=== PATIENT | female | born 1975 | race Caucasian/White ===

== ENCOUNTER 2018-10-29 03:05 | Inpatient (IN) | payer SELFPAY ==
[2018-10-29] MEDS ORDERED: 0.9 % SODIUM CHLORIDE 1,000 ML IV ONE ×2 (03:28→04:01)
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
[2018-10-29] MEDS ORDERED: KETOROLAC TROMETHAMINE 30 MG/1ML VIAL IVP ONE (03:32)
[2018-10-29] MEDS ORDERED: ONDANSETRON HCL/PF 4 MG/ 2ML VIAL IVP ONE (03:33)
[2018-10-29] MEDS ORDERED: HYDROmorphone HCL/PF 1 MG/ML VIAL IVP ONE (04:05)
--- NOTE | 2018-10-29 06:26 | Diagnostic Imaging Report ---
SALMA WAITE [facility] [id number] [facility] [address] [place] [address]. [id number] Report Submission Date: Oct 28, 2018 10:26:51 PM REPEATER OPERATOR Patient Study Name: SONIDO WATSON Date: Oct 28, 2018 9:51:27 PM REPEATER OPERATOR Modality Type: DX Gender: F Description: LOWER EXTREMITY : [birth year] Institution: [facility] Physician: SALMA WAITE 3 views of the right knee History: RT KNEE PAIN, FALL ON 10/16/18 No comparison studies Cortical irregularity of the patella with an osseous fragment seen adjacent to it along its medial aspect. In addition there is cortical irregularity along the distal right femur. No suprapatellar effusion Impression: 1. Osseous density is noted adjacent to the right distal femur on its medial aspect, on only 1 view, distal femur fracture is not excluded. Oblique view of the right knee and dedicated views of the right femur recommended. 2. Fracture fragment is seen adjacent to the medial aspect of the patella, suggestive of avulsion fracture, chronicity is not known. Please correlate with site of pain. Electronically signed on Oct 28, 2018 10:26:51 PM REPEATER OPERATOR by: Aurora Wei Right knee oblique view is now provided, right distal femur is intact. Patellar cortical irregularity again seen. Addendum electronically signed by Aurora Wei on October 28, 2018 11:41:49 PM REPEATER OPERATOR [facility]
[2018-10-29] MEDS: DEXTROSE 5 %-0.45 % SOD CHLORD 1,000 ML IV SCH ×2 (07:57→18:30)
[2018-10-29] MEDS: HYDROmorphone HCL/PF 1 MG/ML VIAL IVP PRN ×5 (07:58→23:12)
[2018-10-29 08:39] VITALS: BMI 30.9
[2018-10-29 09:19] LABS: eGFR (Non-African) > 60
[2018-10-29 09:20] LABS: BASOPHILS % 0.4 (0.0-1.5); EOSINOPHILS % 1.2 % (0.0-6.8); MEAN CORPUSCULAR HEMOGLOBIN 31.5 pg (28.0-34.0); MONOCYTES % 8.7 % (0.0-11.0); NEUTROPHILS # 10.7 # k/uL (1.4-7.7)
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
[2018-10-29] MEDS ORDERED: KETOROLAC TROMETHAMINE 30 MG/1ML VIAL IVP PRN (09:47)
[2018-10-29] MEDS: ENOXAPARIN SODIUM 30 MG/0.3 ML DISP.SYRIN SQ SCH (09:55)
[2018-10-29 10:29] LABS: APPEARANCE,URINE CLEAR (CLEAR); COLOR,URINE YELLOW (YELLOW)
[2018-10-29 10:30] LABS: OCCULT BLOOD,URINE 2+ (NEGATIVE); UROBILINOGEN URINE 0.2 Eu (0.2-1.0)
[2018-10-29] MEDS ORDERED: cefTRIAXone SODIUM 1 GM VIAL ONE (13:00)
[2018-10-29] MEDS ORDERED: 0.9 % SODIUM CHLORIDE 50 ML IV ONE (13:00)
[2018-10-29] MEDS: cefTRIAXone SODIUM 1 GM in 0.9 % SODIUM CHLORIDE 50 ML IV SCH (13:08)
[2018-10-29] MEDS ORDERED: HYDROmorphone HCL/PF 2 MG/ML VIAL ONE ×2 (20:13→23:06)
[2018-10-30] MEDS ORDERED: HYDROmorphone HCL/PF 2 MG/ML VIAL ONE ×4 (02:52→10:40)
[2018-10-30] MEDS: HYDROmorphone HCL/PF 1 MG/ML VIAL IVP PRN ×3 (03:03→10:41)
[2018-10-30] MEDS: DEXTROSE 5 %-0.45 % SOD CHLORD 1,000 ML IV SCH ×2 (04:38→15:17)
[2018-10-30 07:34] LABS: MEAN CORPUSCULAR HEMOGLOBIN 31.8 pg (28.0-34.0)
--- NOTE | 2018-10-30 10:58 | Inpatient Progress Note ---
Subjective - Required Recertification Statement I anticipate X number of days because-include discharge plan: 1 - Review of Systems Events since last encounter: Roberta is markedly improved today. Her lipase has normalized, as well as her WBC now coming down. She remains NPO, however with her improvement, I have written to advance her diet as tolerated. She is afebrile, BP fairly well controlled. She still has c/o a headache. She declines Toradol as she says that it doesn't help. If she can tolerate food, it is my hope to get her home today. General: Chills, Night Sweats HEENT: Head Aches (minimally improved), Visual Changes Pulmonary: Denies: Dyspnea, Cough Cardiovascular: Denies: Chest Pain Gastrointestinal: Abdominal Pain (right flank, right upper quadrant). Denies: Nausea, Vomiting Genitourinary: Denies: Dysuria Musculoskeletal: Denies: Neck Pain, Shoulder Pain Neurological: Weakness Objective - Exam Vitals and I&O: Vital Signs Temp 98.9 F 10/30/18 09:42 Pulse 88 10/30/18 09:42 Resp 16 10/30/18 09:42 BP 143/89 10/30/18 09:42 Pulse Ox 98 10/30/18 09:42 Intake & Output 10/29/18 10/29/18 10/30/18 11:59 23:59 11:59 Intake Total 360 Output Total 700 Balance -700 360 Weight 81.647 kg Intake: Oral 360 Output: Urine 700 Other: Voiding Method Toilet Toilet Toilet # Voids 1 3 # Bowel Movements 0 General: Alert, Oriented to Person, Moderate distress (due to headache) HEENT: Atraumatic, PERRLA, EOMI Neck: Supple Lungs: Clear to auscultation, Normal air movement Cardiovascular: Regular rate Abdomen: Normal bowel sounds, Other (Tender in right flank and right upper quadrant) Extremities: No clubbing, No cyanosis Skin: Normal, [place], Warm Neurological: Normal gait Psych/Mental Status: Mental status NL, Mood NL - Results Results: Laboratory Results WBC 10.60 K/ul (4.00-12.00) 10/30/18 06:00 RBC 3.66 M/ul (3.90-5.20) L 10/30/18 06:00 Hgb 11.6 g/dL (12.0-16.0) L 10/30/18 06:00 Hct 35.0 % (34.5-46.5) 10/30/18 06:00 MCV 96.0 fl (80.0-100.0) 10/30/18 06:00 MCH 31.8 pg (28.0-34.0) 10/30/18 06:00 MCHC 33.2 g/dL (30.0-36.0) 10/30/18 06:00 RDW 10.9 % (11.3-14.3) L 10/30/18 06:00 Plt Count 229 K/mm3 (130-400) 10/30/18 06:00 Neut % (Auto) 78.9 % (39.0-79.0) 10/29/18 03:38 Lymph % (Auto) 10.8 % (16.0-50.0) L 10/29/18 03:38 [place] % (Auto) 8.7 % (0.0-11.0) 10/29/18 03:38 Eos % (Auto) 1.2 % (0.0-6.8) 10/29/18 03:38 Baso % (Auto) 0.4 (0.0-1.5) 10/29/18 03:38 Neut # (Auto) 10.7 # k/uL (1.4-7.7) H 10/29/18 03:38 Lymph # (Auto) 1.5 # k/uL (0.6-4.0) 10/29/18 03:38 [place] # (Auto) 1.2 # k/uL (0.0-0.9) H 10/29/18 03:38 Eos # (Auto) 0.2 # k/uL (0.0-0.6) 10/29/18 03:38 Baso # (Auto) 0.1 # k/uL (0.0-0.5) 10/29/18 03:38 Sodium 134 mmol/L (136-145) L 10/29/18 03:38 Potassium 4.0 mmol/L (3.5-5.1) 10/29/18 03:38 Chloride 102 mmol/L (98-107) 10/29/18 03:38 Carbon Dioxide 23 mmol/L (22-30) 10/29/18 03:38 BUN 14 mg/dL (7-17) 10/29/18 03:38 Creatinine 0.60 mg/dL (0.52-1.04) 10/29/18 03:38 Estimated Creat Clear 185 12 03:38 Est GFR ( Amer) > 60 (60-) 12 03:38 Est GFR (Non-Af Amer) > 60 (60-) 10/29/18 03:38 Glucose 188 mg/dL (74-106) H 10/29/18 03:38 Calcium 8.4 mg/dL (8.4-10.2) 10/29/18 03:38 Total Bilirubin 0.4 mg/dL (0.2-1.3) 10/29/18 03:38 AST 52 U/L (15-46) H 10/29/18 03:38 ALT 79 U/L (13-69) H 10/29/18 03:38 Alkaline Phosphatase 78 U/L (38-126) 10/29/18 03:38 Total Protein 7.1 g/dL (6.3-8.2) 10/29/18 03:38 Albumin 3.6 g/dL (3.5-5.0) 10/29/18 03:38 Lipase 286 U/L (23-300) 10/30/18 Unknown Urine Color Yellow (YELLOW) 10/29/18 07:21 Urine Appearance Clear (CLEAR) 10/29/18 07:21 Urine pH 6.0 (5.0 - 8.0) 10/29/18 07:21 Ur Specific [place] 1.010 (1.010-1.030) 10/29/18 07:21 Urine Protein 1+ mg/dL (NEGATIVE) H 10/29/18 07:21 Urine Ketones Negative mg/dL (NEGATIVE) 10/29/18 07:21 Urine Occult Blood 2+ (NEGATIVE) H 10/29/18 07:21 Urine Nitrite Positive (NEGATIVE) H 10/29/18 07:21 Urine Bilirubin Negative (NEGATIVE) 10/29/18 07:21 Urine Urobilinogen 0.2 Eu (0.2-1.0) 10/29/18 07:21 Ur Leukocyte Esterase 1+ (NEGATIVE) H 10/29/18 07:21 Urine RBC 2-5 (0-2 HPF) H 10/29/18 07:21 Urine WBC >100 (0-5 HPF) H 10/29/18 07:21 Ur Transition Epith Cell Few (NEGATIVE) H 10/29/18 07:21 Urine Bacteria Many (NEGATIVE) H 10/29/18 07:21 Urine Glucose Negative mg/dL (NEGATIVE) 10/29/18 07:21 Assessment/Plan - Assessment/Plan (1) Pyelonephritis Status: Acute Current Visit: Yes Assessment: Improved Plan: Continue rocephin Await urine cultures (2) Migraines Status: Acute Current Visit: Yes Assessment: Slightly improved (3) Pancreatitis Status: Acute Current Visit: Yes Qualifiers: Chronicity: acute Pancreatitis type: unspecified pancreatitis type Acute pancreatitis complication: unspecified Qualified Code(s): K85.90 - Acute pancreatitis without necrosis or infection, unspecified Assessment: Now with normal lipase Plan: Advance diet Hope for discharge to home this afternoon
[2018-10-30] MEDS ORDERED: cefTRIAXone SODIUM 1 GM VIAL ONE (12:03)
[2018-10-30] MEDS ORDERED: 0.9 % SODIUM CHLORIDE 50 ML IV ONE (12:03)
[2018-10-30] MEDS: ENOXAPARIN SODIUM 30 MG/0.3 ML DISP.SYRIN SQ SCH (12:52)
[2018-10-30] MEDS: cefTRIAXone SODIUM 1 GM in 0.9 % SODIUM CHLORIDE 50 ML IV SCH (12:53)
[2018-10-30] MEDS: HYDROmorphone HCL/PF 2 MG/ML VIAL IVP PRN ×3 (12:58→17:11)
[2018-10-30 17:46] VITALS: BP 154/94
--- NOTE | 2018-11-08 12:19 | Discharge Summary ---
DATE OF ADMISSION: October 28, 2018 DATE OF DISCHARGE: October 30, 2018 DIAGNOSES ON THIS HOSPITALIZATION: 1. Pancreatitis. 2. Pyelonephritis. 3. Migraine headaches. SUMMARIZATION OF ADMISSION HISTORY AND PHYSICAL: This is a 43-year-old female who presented to the emergency room with a complaint of an onset of right flank pain, as well as generalized malaise, nausea, and vomiting. She denied any significant dysuria. She did have some headaches. She states she has had migraines life long. HOSPITAL COURSE: She was admitted. CT scan showed a questionable right pyelonephritis. Her urinalysis did show over 100 white blood cells per high-power field. The urine was sent for culture. She was started on IV Rocephin 1 gram IV every 24 hours and Dilaudid for pain. Her amylase had normalized by hospital day number 2. She was discharged to home then with Diclofenac 75 mg p.o. b.i.d p.r.n. headache, as well as Bactrim DS 1 p.o. b.i.d. for antibiotics. I did this because she does have an ananaphylactic reaction to penicillin. She did not have any reaction to Rocephin in the hospital. CONDITION ON DISCHARGE: She was discharged to home in improved condition. DISCHARGE INSTRUCTIONS: She is to call the office on Monday for culture results to see if we need to switch her antibiotics. PATRICIA
== END 2018-10-30 17:44 | disposition home or self-care (01) | DRG 439 ==
LOC: ED 03:05 → SOUTH 07:15
PROVIDERS: ADMIT Family Medicine; ATTEND Family Medicine
DX: K85.90 Acute pancreatitis without necrosis or infection, unspecified (principal); N10 Acute pyelonephritis; G43.909 Migraine, unspecified, not intractable, without status migrainosus
CPT/HCPCS: 74177; 80053; 81002; 83690; 85025; 85027; 87086; 87186; J0696; J1170; J1650; J1885; J2405; J7030; Q9967; 99221; 99238; 99284; S1016; S5010

== ENCOUNTER 2019-02-04 21:53 | Emergency (ER) | payer OTHER ==
[2019-02-04 22:41] VITALS: BP 142/87
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
[2019-02-05 00:05] LABS: COLOR,URINE YELLOW (YELLOW)
[2019-02-05 00:06] LABS: APPEARANCE,URINE CLOUDY (CLEAR)
[2019-02-05 00:07] LABS: OCCULT BLOOD,URINE TRACE-INTACT (NEGATIVE); UROBILINOGEN URINE 0.2 Eu (0.2-1.0)
== END 2019-02-04 22:33 | disposition left against medical advice (07) ==
LOC: ED 21:53
DX: R30.0 Dysuria (principal); R10.32 Left lower quadrant pain; K08.89 Other specified disorders of teeth and supporting structures; Z72.0 Tobacco use
CPT/HCPCS: 81002; 87086; 99282; 99283

== ENCOUNTER 2019-12-09 09:23 | Emergency (ER) | payer OTHER ==
--- NOTE | 2019-12-09 09:37 | ED Physician Documentation ---
Female Urogenital Problems - HISTORIAN Historian: patient - HPI Stated Complaint: buring on urination Chief Complaint: Female Urogenital Problems Additional Information: 44 year old male presents with c/o burning with urination that started 3 days ago. Onset: days ago Severity: mild Location of Pain: low back pain - Associated Symptoms Urinary Symptoms: discomfort w/ urination, burning w/ urination, urgency w/ urination - ROS CONST: none GI/: denies: nausea, vomiting CVS/RESP: none EYES/ENT: none NEURO/PSYCH: none MS/SKIN/LYMPH: none - PAST HX Past History: other (Depression, Hx of pancreatitis) Other History: hypertension Immunizations: UTD Allergies/Adverse Reactions: Allergies Allergy/AdvReac Type Severity Reaction Status Date / Time ketorolac [From Toradol] Allergy Verified 12/09/19 09:35 Penicillins Allergy Verified 12/09/19 09:35 sulfamethoxazole Allergy Verified 12/09/19 09:35 [From Bactrim] tramadol Allergy Verified 12/09/19 09:35 trimethoprim [From Bactrim] Allergy Verified 12/09/19 09:35 Home Medications: Ambulatory Orders Medication Instructions Recorded CiproFLOXacin HCL [Cipro] 500 mg PO BID #14 tablet 12/09/19 Lisinopril 40 mg PO QDAY 12/09/19 Phenazopyridine HCl [Pyridium] 200 mg PO TID #6 tablet 12/09/19 Pregabalin 100 mg PO TID 12/09/19 hydroCHLOROthiazide [Hydrodiuril] 25 mg PO DAILY 12/09/19 - SOCIAL HX Smoking History: greater than 1 pack/day Alcohol Use: heavy Drug Use: marijuana, methamphetamines - FAMILY HX Family History: none - VITAL SIGNS Vital Signs: Vital Signs Temp Pulse Resp BP Pulse Ox 98.7 F 84 24 137/96 99 12/09/19 09:23 12/09/19 09:23 12/09/19 09:23 12/09/19 09:23 12/09/19 09:23 - REVIEWED ASSESSMENTS Nursing Assessment Reviewed: Yes Vitals Reviewed: Yes Female Urogenital Problems - EXAM General Appearance: alert, mild distress EENT: eye inspection normal, ENT inspection normal, pharynx normal, no signs of dehydration, SHIRLEY, TM's nml Neck: nml inspection Respiratory: breath sounds nml CVS: heart sounds normal Abdomen: soft, non-tender Back: non-tender Skin: color nml, no rash, warm,dry Extremities: non-tender, normal range of motion Neuro: oriented X3, CN's nml as tested, motor nml, sensation nml, mood/affect nml, cognition normal Discharge Clincal Impression: Urinary tract infection symptoms Prescriptions: CiproFLOXacin HCL [Cipro] 500 mg PO BID #14 tablet Phenazopyridine HCl [Pyridium] 200 mg PO TID #6 tablet Referrals: Primary Doctor,No [Primary Care Provider] - 2 Days Additional Instructions: Take Cipro 500mg by mouth twice a day for 7 days Take Pyridium 200 mg by mouth 3 times a day as needed for pain Increase water intake > 64 oz. Follow up with PCP next week for re-evaluation Comments: Patient upset at discharge; felt that she needed a "narcotic" for urinary pain; explained that it was not the appropriate tx but her pain would be treated. Condition: Good Disposition: 01 HOME, SELF-CARE Decision to Admit: NO Decision Time: 10:00
[2019-12-09 09:43] VITALS: BP 141/83
== END 2019-12-09 09:37 | disposition home or self-care (01) ==
LOC: ED 09:23
DX: N39.0 Urinary tract infection, site not specified (principal); B96.29 Other Escherichia coli [E. coli] as the cause of diseases classified elsewhere
CPT/HCPCS: 81002; 87086; 99282; 99284